=== PATIENT | female | born 1990 | race Caucasian/White ===

== ENCOUNTER → 2018-05-25 14:00 | Outpatient (CLI) | payer OTHER, SELFPAY | DX: Z23 Encounter for immunization (principal) | CPT/HCPCS: 90471; 90686 ==

== ENCOUNTER → 2018-10-24 09:05 | Outpatient (CLI) | payer OTHER, SELFPAY ==
--- NOTE | 2018-10-24 | DI.US.S_ITS ---
PROCEDURE: US OB <= 14 WEEKS FETUS INDICATIONS: THREATENED ; BLEEDING OUTSIDE/PRIOR DATING DATA: Last menstrual period (LMP): 08/20/18. LMP-based estimated date of delivery (KAYLIE): 05/27/19 First dating scan (date and location): Today. Estimated date of delivery (KAYLIE) from first dating scan: 06/15/19. TECHNIQUE: Real-time scanning was performed of the fetus and maternal pelvic organs, with image documentation. Endovaginal scanning was also performed to better visualize the fetus and maternal ovaries. COMPARISON: None. FINDINGS: Embryo: There is a crown-rump length measuring 0.74 cm with a gestational age of 6 weeks 4 days. There is no heartbeat. This is a intrauterine demise. Measurement variability in dating: +/- 4 weeks by LMP, +/- 7 days by mean sac diameter (use before 6 weeks gestation if crown-rump length not able to be measured), +/- 5 days by crown-rump length (up to 8 weeks 6 days gestation), +/- 7 days by crown-rump length (up to 13 weeks 6 days gestation). Maternal organs: Ovaries are within normal limits. Limited images through the kidneys demonstrate no hydronephrosis. IMPRESSION: 1. [place]-rump length measuring 7.4 mm with an estimated gestational age of 6 weeks 4 days. No heart rate. Findings consistent with intrauterine demise. Comment: Findings were discussed with Maribell CANALES at time of study dictation. Dictated by: Uli Leonard M.D. on 10/24/2018 at 10:37 Approved by: Uli Leonard M.D. on 10/24/2018 at 10:58
[2018-10-24 11:06] LABS: T4 Total Thyroxine 6.99 ug/dL (5.5-11.0)
[2018-10-24 11:19] LABS: Thyroid Stimulating Hormone 2.51 uIU/mL (0.47-4.68)
== END ==
PROVIDERS: Visit Provider Nurse Practitioner Obstetrics & Gynecology
DX: O02.1 Missed abortion (principal)
CPT/HCPCS: 36415; 76801; 76817; 84436; 84443; 86900; 86901

== ENCOUNTER → 2019-06-04 09:05 | Outpatient (CLI) | payer OTHER, SELFPAY ==
--- NOTE | 2019-06-04 | DI.US.S_ITS ---
PROCEDURE: US OB >= 14 WEEKS FETUS INDICATIONS: ANATOMY SCAN OUTSIDE/PRIOR DATING DATA: Last menstrual period (LMP): 01/13/19. LMP-based estimated date of delivery (KAYLIE): 10/20/19. First dating scan (date and location): 06/04/19. Estimated date of delivery (KAYLIE) from first dating scan: 10/22/19. TECHNIQUE: Real-time scanning was performed of the fetus, with image documentation and biometric measurements. Endovaginal scanning: Not performed COMPARISON: None. FINDINGS: General: A single living intrauterine gestation is present. Presentation: Vertex. Placenta: Placental position is fundal, without previa. Lower placental edge 2 cm or less from internal cervical os qualifies as low lying placenta. Amniotic fluid index: 13.7 cm, normal range is 5-24 cm. largest pocket measures 4.2 cm heart rate: 150 beats per minute. Maternal cervical canal: 3.7 cm long. Normal lower limit is 2.5 cm. biometrics: Biparietal diameter: 4.5 cm, 19 weeks 4 days Head circumference: 17.3 cm, 19 weeks 6 days Abdominal circumference: 15.0 cm, 20 weeks 2 days Femur length: 3.2 cm, 19 weeks 6 days Estimated gestational age from initial scan: not applicable. Composite gestational age from present scan: 20 weeks zero days Estimated weight and percentile: 327 g, 31st percentile Measurement variability for biometric dating: +/- 7 days from 14 weeks to 15 weeks 6 days gestation, +/- 10 days from 16 weeks to 21 weeks 6 days gestation, +/- 2 weeks from 22 weeks to 27 weeks 6 days gestation, +/- 3 weeks for 28 weeks gestation or later. weight reference: 4500 g or EFW >90/95% is considered macrosomia or large for gestational age. EFW <10% is small for gestational age. EFW 5% or less is considered intra-uterine growth restriction. Anatomic survey: Neuro: Ventricles are non-dilated at less than 10 mm. Cisterna magna is normal at 3-11 mm. Cerebellum is normal in size and morphology. Nuchal skin fold: Normal at less than 6 mm between 14-21 weeks gestational age. Face: Nose and lips, facial profile are normal. Spine: Not well-seen due to gestational I. Heart: 4-chambered heart is present, with normal ventricular outflow tracts. Diaphragm: Diaphragm is intact. Stomach: Left-sided stomach is present. Kidneys: No hydronephrosis. Normal is less than 5 mm in 2nd trimester, less than 7 mm in 3rd trimester. Cord: 3-vessel cord has orthotopic insertion. Bladder: Normal in size. Extremities: All 4 extremities identified. Large cystic-appearing structure measuring 3.7 x 3.3 x 3.7 cm lies adjacent to the placenta and placental cord insertion. No definite continuity with the fetus is seen. No internal vascularity with Doppler interrogation. IMPRESSION: Single living intrauterine fetus demonstrating expected interval growth. spine not well visualized due to gestational lie Recommend followup. Incidentally noted placental or umbilical cord cyst, nonspecific finding. Dictated by: Charlie Fierro M.D. on 06/04/2019 at 11:36 Approved by: Charlie Fierro M.D. on 06/04/2019 at 11:40
== END ==
PROVIDERS: PCP Nurse Practitioner Obstetrics & Gynecology; Visit Provider Nurse Practitioner Obstetrics & Gynecology
DX: Z36.89 Encounter for other specified antenatal screening (principal); Z3A.20 20 weeks gestation of pregnancy
CPT/HCPCS: 76811

== ENCOUNTER → 2019-07-09 09:01 | Outpatient (CLI) | payer OTHER, SELFPAY ==
--- NOTE | 2019-07-09 | DI.US.S_ITS ---
PROCEDURE: US OB FOLLOW UP INDICATIONS: FOLLOW-UP SPINE, INTRAUTERINE CYST OUTSIDE/PRIOR DATING DATA: Last menstrual period (LMP): 01/13/19. LMP-based estimated date of delivery (KAYLIE): 10/20/19. First dating scan (date and location): 06/04/19. Estimated date of delivery (KAYLIE) from first dating scan: 10/22/19.. TECHNIQUE: Real-time scanning was performed of the fetus, with image documentation and biometric measurements. COMPARISON: [facility], OB <= 14 WEEKS FETUS, 10/24/2018, 9:59. [facility] OB >= 14 WEEKS FETUS, 06/04/2019, 9:29. FINDINGS: General: A single living intrauterine gestation is present. Presentation: Transverse. Placenta: Placental position is anterior, without previa. Amniotic fluid index: 16.8 cm, normal range is 5-24 cm. heart rate: 150 beats per minute. Maternal cervical canal: 4.2 cm long. Normal lower limit is 2.5 cm. Estimated gestational age from initial scan: 25 weeks 0 days Other: Probable umbilical cord cyst redemonstrated with internal avascular echogenic focus. IMPRESSION: 1. Single living IUP redemonstrated and today's exam demonstrating normal appearance of the spine. 2. Probable umbilical cord cyst which measures 6.0 x 4.0 x 5.4 cm and there is a internal avascular focus present measuring 2.9 x 3.8 x 3.6 cm which may be related to internal hemorrhagic products. Continued sonographic surveillance is recommended. Dictated by: Rod Bhakta [facility] Interpreted: Ellie Parada MD on 07/09/2019 at 10:56 Approved by: Ellie Parada MD, PhD on 07/09/2019 at 13:56
== END ==
PROVIDERS: PCP Nurse Practitioner Obstetrics & Gynecology; Visit Provider Nurse Practitioner Obstetrics & Gynecology
DX: Z36.2 Encounter for other antenatal screening follow-up (principal); Z3A.25 25 weeks gestation of pregnancy
CPT/HCPCS: 76816

== ENCOUNTER → 2019-07-16 09:05 | Outpatient (CLI) | payer OTHER, SELFPAY ==
[2019-07-16 11:01] LABS: Add Manual Diff / Slide Review NO; Basophils Absolute Auto 100 /uL (0-100); Basophils Percent Auto 0.5 % (0-2); Eosinophils Absolute Auto 100 /uL (0-450); Eosinophils Percent Auto 1.2 % (2-4); Hematocrit 31.8 % (36-46); Hemoglobin 10.8 g/dL (12.0-16.0); Lymphocytes Absolute Auto 2300 /uL (1100-4500); Lymphocytes Percent Auto 22.5 % (25-40); Mean Corpuscular HGB Conc 33.9 % (30-36); Mean Corpuscular Hemoglobin 30.3 PG (26-34); Mean Corpuscular Volume 89.4 fL (80-100); Monocytes Absolute Auto 700 /uL (0-900); Monocytes Percent Auto 6.5 % (3-14); Neutrophils Absolute Auto 6900 /uL (1500-7000); Neutrophils Percent Auto 69.3 % (50-75); Platelet Count 182 X10^3/uL (150-400); Red Blood Cell Count 3.55 X10^6/uL (4.0-5.2); Red Cell Distribution Width 12.9 % (11.6-14.8)
[2019-07-16 11:33] LABS: Glucose Fasting 70 mg/dL (70-100)
[2019-07-16 11:59] LABS: Glucose Tol Interpretation INTERPRETATION
[2019-07-16 12:11] LABS: Ferritin 5.6 ng/mL (6.27-137)
[2019-07-16 12:33] LABS: Glucose 1 Hour 157 mg/dL (70-170)
[2019-07-16 13:20] LABS: Glucose 2 Hour 141 mg/dL (70-140)
== END ==
PROVIDERS: PCP Nurse Practitioner Obstetrics & Gynecology; Visit Provider Nurse Practitioner Obstetrics & Gynecology
DX: O24.419 Gestational diabetes mellitus in pregnancy, unspecified control (principal); Z13.1 Encounter for screening for diabetes mellitus
CPT/HCPCS: 36415; 82728; 82951; 82952; 85025

== ENCOUNTER → 2019-08-05 08:36 | Outpatient (CLI) | payer OTHER, SELFPAY ==
--- NOTE | 2019-08-05 | DI.US.S_ITS ---
PROCEDURE: US OB FOLLOW UP INDICATIONS: GROWTH, FOLLOW UP UMBILICAL CORD CYST OUTSIDE/PRIOR DATING DATA: Last menstrual period (LMP): 01/13/2019. LMP-based estimated date of delivery (KAYLIE): 10/20/2019. First dating scan (date and location): 06/04/2019. Estimated date of delivery (KAYLIE) from first dating scan: 10/22/2019. TECHNIQUE: Real-time scanning was performed of the fetus, with image documentation. COMPARISON: [facility], , OB FOLLOW UP, 07/09/2019, 9:26. FINDINGS: A single living intrauterine gestation is present. Presentation: Vertex. Placenta: Placental position is anterior, without previa. Amniotic fluid index: 16.3 cm, normal range is 5-24 cm. heart rate: 131 beats per minute. Maternal cervical canal: 5.0 cm long. Normal lower limit is 2.5 cm. Estimated gestational age from initial scan: 28 weeks 6 days. Estimated gestational age from current ultrasound: 29 weeks 1 day. BPD: 7.2 cm. 28 weeks 6 days. HC: 27.3 cm. 29 weeks 5 days. AC: 25.4 cm. 29 weeks 4 days. FL: 5.3 cm. 20 weeks 2 days. Estimated weight 1344 g. 48 percentile. Umbilical artery S./D. Ratio: 2.4, 2.8, 3.3 Umbilical cord cyst measures 6.9 x 6.7 x 3.8 cm. (previously 6.0 x 5.4 x 4.0). Central portion and is now more hypoechoic and measures 4 x 3.5 x 3 cm, (previously 3.8 x 2.9 x 3.6 cm). No internal vascularity or mural nodule. IMPRESSION: 1. [place] living intrauterine at 29 weeks 1/7 days based on today's ultrasound. This is concordant with the prior ultrasound. There is expected interval growth. 2. Normal placenta and amniotic fluid. 3. Umbilical cord cyst measures 6.9 cm, overall increase in size compared to 07/09/2019. 4. Umbilical artery Doppler is within normal limits. Dictated by: Gage Lo M.D. on 08/05/2019 at 16:41 Approved by: Gage Lo M.D. on 08/05/2019 at 16:53
== END ==
PROVIDERS: PCP Nurse Practitioner Obstetrics & Gynecology; Visit Provider Nurse Practitioner Obstetrics & Gynecology
DX: Z36.2 Encounter for other antenatal screening follow-up (principal); O99.89 Other specified diseases and conditions complicating pregnancy, childbirth and the puerperium; Z3A.29 29 weeks gestation of pregnancy
CPT/HCPCS: 76816

== ENCOUNTER → 2019-08-28 15:30 | Oncology outpatient (ONC) | payer OTHER, SELFPAY ==
[2019-07-24 13:48] VITALS: BP 132/78; PULSE 78; RESP 16; TEMP 36.4; O2SAT 100
[2019-07-24] MEDS: IRON SUCROSE 250 MG in SODIUM CHLORIDE 0.9% 100 ML 225 ML IV (14:04)
[2019-07-31 16:02] VITALS: BP 115/69; PULSE 79; RESP 16; TEMP 36.6; O2SAT 99
[2019-07-31] MEDS: IRON SUCROSE 250 MG in SODIUM CHLORIDE 0.9% 100 ML 225 ML IV (16:34)
[2019-08-21 15:41] VITALS: BP 121/73; PULSE 75; RESP 16; TEMP 36.6; O2SAT 97
[2019-08-21] MEDS: IRON SUCROSE 250 MG in SODIUM CHLORIDE 0.9% 100 ML 225 ML IV (15:54)
[2019-08-28] MEDS: IRON SUCROSE 250 MG in SODIUM CHLORIDE 0.9% 100 ML 225 ML IV (15:36)
[2019-08-28 15:45] VITALS: BP 106/61; PULSE 84; RESP 18; TEMP 36.7; O2SAT 100
== END ==
PROVIDERS: PCP Nurse Practitioner Obstetrics & Gynecology; Visit Provider Nurse Practitioner Obstetrics & Gynecology
DX: O99.013 Anemia complicating pregnancy, third trimester (principal); D50.9 Iron deficiency anemia, unspecified
CPT/HCPCS: 36415; 96365; J1756

== ENCOUNTER → 2019-09-10 09:18 | Outpatient (CLI) | payer OTHER, SELFPAY ==
--- NOTE | 2019-09-10 | DI.US.S_ITS ---
PROCEDURE: US OB LIMITED INDICATIONS: BPP AND GROWTH OUTSIDE/PRIOR DATING DATA: Last menstrual period (LMP): 01/13/19. LMP-based estimated date of delivery (KAYLIE): 10/20/19. First dating scan (date and location): 06/04/19. Estimated date of delivery (KAYLIE) from first dating scan: 10/22/19. TECHNIQUE: Real-time scanning was performed of the fetus, with image documentation and biometric measurements. Endovaginal scanning: Not performed COMPARISON: [facility], OB FOLLOW UP, 08/05/2019, 8:59. [facility] OB FOLLOW UP, 07/09/2019, 9:26. [facility] OB >= 14 WEEKS FETUS, 06/04/2019, 9:29. FINDINGS: General: A single living intrauterine gestation is present. Presentation: Vertex. Placenta: Placental position is anterior, without previa. Amniotic fluid index: 14.7 cm, normal range is 5-24 cm. heart rate: 145 beats per minute. Maternal cervical canal: 4.5 cm long. Normal lower limit is 2.5 cm. Estimated gestational age from initial scan: 34 weeks zero days Other: Biophysical profile 03/21 Tone 2 point Movement 2 point Respiration 2 points Largest pocket (4.7 cm) 2 point Umbilical artery S/D ratio measures 2.8, 3.1, 2.9 within normal limits. Cyst involving the placenta or cord measuring 8.3 x 8.2 x 5.1 cm (previously 6.7 x 3.8 x 6.9 cm). IMPRESSION: Single living intrauterine fetus in vertex presentation Normal DEVORA Normal biophysical profile Normal CORD Doppler examination. Presumed umbilical cord cyst as above, enlarged since prior study Dictated by: Charlie Fierro M.D. on 09/10/2019 at 17:29 Approved by: Charlie Fierro M.D. on 09/10/2019 at 17:38
== END ==
PROVIDERS: PCP Nurse Practitioner Obstetrics & Gynecology; Visit Provider Nurse Practitioner Obstetrics & Gynecology
DX: Z36.89 Encounter for other specified antenatal screening (principal); Z3A.34 34 weeks gestation of pregnancy
CPT/HCPCS: 76815

== ENCOUNTER 2019-09-17 16:01 | Outpatient (CLI) | payer OTHER, SELFPAY ==
--- NOTE | 2019-09-17 16:22 | P.TNLD_ITS ---
Visit Information Visit Information Date of evaluation: 09/17/19 Primary OB Provider: Maribell Lopez On-call OB Provider: Lisa Deal Reason for Evaluation: Yes pre-term labor Comments/Additional reasons for admission: 28 YO @ 35wks2 days by LMP and early US presents for evaluation of contractions. Contractions started today around 2pm after a very busy day running errands and cleaning the house. Ctx rated at a 3/10, stronger than her normal [place] Re[place]. Lots of FM. No VB or LOF. significant for iron deficiency anemia treated w/ IV Fe and placental cyst w/ MFM co-management (MFM has approved vaginal at w/ IOL in 38-39th week). Pt would like to make it to her dinner reservation tonight if it is safe to do so. [facility] Medical History (Updated 09/17/19 @ 16:51 by Maribell Lopez CNM) Frequent UTI (Acute) History of pyelonephritis (Acute) Family History (Updated 09/17/19 @ 16:36 by Maribell Lopez CNM) Mother Cancer Father Hypertension Review of Systems Review of Systems ROS: Yes All systems reviewed with the patient and are negative except as otherwise documented Exam Vital Signs (past 8 hours): BP 121/76, HR 76, T98.6F Temporal Const General: healthy appearing Nutritional Appearance: average body habitus and well nourished Orientation: alert, awake and oriented x3 Resp Effort & Inspection: normal respiratory effort and able to speak in complete sentences Manual OB Exam: dilated (1.5), effaced 75% and station high Presentation: vertex Other: Rapid GBS collected prior to cervical exam Evaluation Evaluation Baseline heart rate: 135 Variability: Moderate (11-25) monitor accelerations: Present monitor decelerations: Absent Contraction Frequency (minutes): 3 Uterine Contraction Intensity: Mild Category of Tracing: I Cervical dilation (cm): 1 Cervical effacement (%): 75 station: -3 Diagnosis, Plan/Disposition Final Diagnosis (1) contractions: Current Visit: Yes Status: Acute Problem details: Discharge to home w/ PTL instructions. If contractions ease, pt to follow-up in clinic in AM. If contractions persist, precommend she come back for repeat evaluation in 4 hours. If ctx strengthen, encouraged her to return [place]. Patient verbalized understanding and ambulated off of unit with her .
[2019-09-18 18:40] LABS: Strep Grp B PCR NEG for Grp B Strep
== END 2019-09-17 16:30 | disposition home or self-care (01) ==
LOC: OB 09-18 12:57
PROVIDERS: PCP Nurse Practitioner Obstetrics & Gynecology; Referring Provider Nurse Practitioner Obstetrics & Gynecology; Visit Provider Nurse Practitioner Obstetrics & Gynecology
DX: O47.03 False labor before 37 completed weeks of gestation, third trimester (principal); O99.013 Anemia complicating pregnancy, third trimester; Z3A.35 35 weeks gestation of pregnancy
CPT/HCPCS: 59025; 87653; G0378; G0379

== ENCOUNTER → 2019-09-18 15:09 | Outpatient (ROUT) | payer OTHER, SELFPAY | PROVIDERS: PCP Nurse Practitioner Obstetrics & Gynecology; Visit Provider Nurse Practitioner Obstetrics & Gynecology | DX: O09.93 Supervision of high risk pregnancy, unspecified, third trimester (principal); Z3A.35 35 weeks gestation of pregnancy; Z11.2 Encounter for screening for other bacterial diseases | CPT/HCPCS: 87081 ==

== ENCOUNTER → 2019-09-24 09:03 | Outpatient (CLI) | payer OTHER, SELFPAY ==
--- NOTE | 2019-09-24 | DI.US.S_ITS ---
PROCEDURE: US OB LIMITED INDICATIONS: EFW; BPP OUTSIDE/PRIOR DATING DATA: Last menstrual period (LMP): 01/13/2019. LMP-based estimated date of delivery (KAYLIE): 10/20/2019. First dating scan (date and location): 06/04/2019. Estimated date of delivery (KAYLIE) from first dating scan: 10/22/2019. TECHNIQUE: Real-time scanning was performed of the fetus, with image documentation and biometric measurements. Biophysical profile was also obtained. Endovaginal scanning: Not performed COMPARISON: [facility], OB LIMITED, 09/10/2019, 9:36. FINDINGS: General: A single living intrauterine gestation is present. Presentation: Vertex. Placenta: Placental position is anterior, without previa. Amniotic fluid index: 11.3 cm, normal range is 5-24 cm. the largest vertical fluid pocket measured 3.8 cm. heart rate: 152 beats per minute. biometrics: Biparietal diameter: 8.8 cm, correlating with 35 weeks and 3 days. Head circumference: 31.8 cm, correlating with 35 weeks and 6 days. Abdominal circumference: 32.9 cm, correlating with 36 weeks and 6 days. Femur length: 6.9 cm, correlating with 35 weeks and 2 days. Estimated gestational age from initial scan: not applicable. Composite gestational age from present scan: 35 weeks and 6 days Estimated weight and percentile: 2869 g, correlating with the 56 percentile for gestational age. Measurement variability for biometric dating: +/- 7 days from 14 weeks to 15 weeks 6 days gestation, +/- 10 days from 16 weeks to 21 weeks 6 days gestation, +/- 2 weeks from 22 weeks to 27 weeks 6 days gestation, +/- 3 weeks for 28 weeks gestation or later. weight reference: 4500 g or EFW >90/95% is considered macrosomia or large for gestational age. EFW <10% is small for gestational age. EFW 5% or less is considered intra-uterine growth restriction. Biophysical profile: Tone: 2 points. Movement: 2 points. Respiration: 2 points. Largest pocket of fluid: 2 points. Umbilical artery Doppler: S/D ratio measured 2.6. Normal cord Doppler waveform. IMPRESSION: 1. Single living intrauterine gestation with an estimated sonographic gestational age of approximately 35 weeks and 6 days. Expected interval growth has occurred. 2. Biophysical profile score of 8 out of 8 with normal cord Doppler waveforms and S/D ratio. Dictated by: Onesimo Ball M.D. on 09/24/2019 at 9:56 Approved by: Onesimo Ball M.D. on 09/24/2019 at 11:05
== END ==
PROVIDERS: PCP Nurse Practitioner Obstetrics & Gynecology; Referring Provider Nurse Practitioner Obstetrics & Gynecology; Visit Provider Nurse Practitioner Obstetrics & Gynecology
DX: Z34.93 Encounter for supervision of normal pregnancy, unspecified, third trimester (principal); Z3A.35 35 weeks gestation of pregnancy
CPT/HCPCS: 76815

== ENCOUNTER → 2019-10-08 09:02 | Outpatient (CLI) | payer OTHER, SELFPAY ==
--- NOTE | 2019-10-08 | DI.US.S_ITS ---
PROCEDURE: US OB LIMITED INDICATIONS: F/U ABN U/S FINDING, BPP OUTSIDE/PRIOR DATING DATA: Last menstrual period (LMP): 01/13/19. LMP-based estimated date of delivery (KAYLIE): 10/20/19. First dating scan (date and location): 06/04/19. Estimated date of delivery (KAYLIE) from first dating scan: 10/22/19. TECHNIQUE: Real-time scanning was performed of the fetus, with image documentation. Endovaginal scanning: Not needed COMPARISON: [facility], OB LIMITED, 09/24/2019, 9:23. [facility], OB LIMITED, 09/10/2019, 9:36. FINDINGS: A single living intrauterine gestation is present. Presentation: Vertex. Placenta: Placental position is anterior, without previa. Amniotic fluid index: 12.5 cm, normal range is 5-24 cm. heart rate: 139 beats per minute. Estimated gestational age from initial scan: 38 weeks 0 days. Biophysical profile yields a of a possible points. Umbilical artery systolic/diastolic ratio is normal at the proximal, mid and distal umbilical cord. Note is again made of a placental or adjacent umbilical cord cyst, previously documented, measuring up to 7.1 x 7.6 x 4.1 cm overall with an internal cystic component containing debris measuring up to 3.4 x 2.1 x 3.1 cm. IMPRESSION: Normal biophysical profile. Previously documented umbilical artery or adjacent placental cyst with internal cyst with debris is stable over time. The delivery date is projected to be centered on 10/22/19. Dictated by: Robert Adam M.D. on 10/08/2019 at 13:09 Approved by: Robert Adam M.D. on 10/08/2019 at 13:13
== END ==
PROVIDERS: PCP Nurse Practitioner Obstetrics & Gynecology; Referring Provider Nurse Practitioner Obstetrics & Gynecology; Visit Provider Nurse Practitioner Obstetrics & Gynecology
DX: O28.3 Abnormal ultrasonic finding on antenatal screening of mother (principal); Z3A.38 38 weeks gestation of pregnancy
CPT/HCPCS: 76815

== ENCOUNTER 2019-10-10 07:25 | Inpatient (IN) | payer OTHER, SELFPAY ==
--- NOTE | 2019-10-10 07:43 | PM.OBHP.1 ---
OB HPI Date/Time Date of admission: 10/10/19 Date Patient Seen: 10/10/19 Time Patient Seen: 07:40 History of Present Condition Chief complaint: induction : 3 Para: 10 Estimated Date of Delivery: 10/20/19 Estimated Gestational Age (weeks): 38.4 Narrative: Carmela Penny is a 28 year old female @ 38wks 4days by LMP and 9wk US presents for medical IOL for placental anomaly. [facility] in 38-39th week. Feeling good FM and mild, irregular contractions. No vaginal bleeding or leaking fluid. Received IV iron dextrose for anemia in 3rd trimester. Indications Indication for induction OB: medical complication History of Present care: good care Dating criteria: LMP confirmed by 1st trimester US Obstetrical complications: other (placental cyst 7.1x7.6x4.1cm with internal mass 3.4x2.1x3.1cm) Evaluation Evaluation Baseline heart rate: 135 Variability: Moderate (11-25) monitor accelerations: Present monitor decelerations: Absent Contraction Frequency (minutes): 10 Uterine Contraction Intensity: Mild Category of Tracing: I Cervical dilation (cm): 3 Cervical effacement (%): 50 station: -2 PFSH Medical History Frequent UTI (Acute) History of pyelonephritis (Acute) Family History Mother Cancer Father Hypertension Meds Home Medications and Allergies Allergies Allergy/AdvReac Type Severity Reaction Status Date / Time No Known Drug Allergies Allergy Verified 07/24/19 13:48 Review of Systems Review of Systems ROS: Yes All systems reviewed with the patient and are negative except as otherwise documented Exam Vital Signs (past 8 hours): BP 110/64, HR82, T36.2C Temporal Resp Effort & Inspection: normal respiratory effort Auscultation: clear to auscultation bilaterally Cardio Rate: regular rate Rhythm: regular rhythm Heart Sounds: S1 normal and S2 normal Manual OB Exam: dilated (2.5), effaced 50%, station -2 and other (medium consistency, posterior) Presentation: brow Estimated Weight (lbs): 7 Objective Labs Labs: ABO/Rh: O positive, Antibody screen-negative, HIV-negative, HepBsAg-negative, GC/CT-negative/negative, RPR-NR, Rubella-Immune, NIPS-negative/female, MsAFP-negative; 07/16/19: Hgb-10.8, Hct-31.8, Plt-182, 2hr gtt-70/157/141 (passed); 09/18/19: GBS-negative Admit CBC and type & screen pending Assessment and Plan Assessment and Plan Assessment and Plan narrative: A: multipara IOL for placental anomaly Rh Pos Anemia Cat I FHR P: Admit w/ routine orders. Recommend continuous EFM d/t placental anomaly and potential intolerance of labor. Recommend Miles circuit for malpresentation in early labor. Informed consent for IOL obtained yesterday. Eason balloon placed manually and inflated w/ 50mL NS. Low dose pitocin (no greater than 6mu/min until Eason balloon out). Placenta to pathology after . notified of patient admit status and plan of care. Time Spent with Patient Total time spent with greater than 50% in coordination of care (as documented) at patient's floor/unit and/or counseling patient:: 25 - 35 minutes
[2019-10-10] MEDS: LACTATED RINGERS 1,000 ML 100 ML IV ×2 (09:00→15:19)
[2019-10-10 09:18] LABS: Add Manual Diff / Slide Review NO; Basophils Absolute Auto 100 /uL (0-100); Basophils Percent Auto 0.4 % (0-2); Eosinophils Absolute Auto 100 /uL (0-450); Hematocrit 35.9 % (36-46); Hemoglobin 12.1 g/dL (12.0-16.0); Lymphocytes Absolute Auto 1700 /uL (1100-4500); Lymphocytes Percent Auto 13.9 % (25-40); Mean Corpuscular HGB Conc 33.7 % (30-36); Mean Corpuscular Hemoglobin 30.8 PG (26-34); Mean Corpuscular Volume 91.5 fL (80-100); Monocytes Absolute Auto 500 /uL (0-900); Monocytes Percent Auto 4.2 % (3-14); Neutrophils Absolute Auto 10000 /uL (1500-7000); Neutrophils Percent Auto 80.5 % (50-75); Platelet Count 210 X10^3/uL (150-400); Red Blood Cell Count 3.92 X10^6/uL (4.0-5.2); Red Cell Distribution Width 15.1 % (11.6-14.8); White Blood Cell Count 12.4 X10^3/uL (4.5-11.0)
[2019-10-10] MEDS: OXYTOCIN PREMIX 30 UNIT/500 ML PLAST..BAG IV (09:44)
[2019-10-10 11:08] VITALS: BP 110/64
--- NOTE | 2019-10-10 11:12 | PM.OBPNLAB ---
Date/Time Date Patient Seen: 10/10/19 Time Patient Seen: 11:10 Pain Control Pain control: tolerating well Pelvic Exam Dilation (cm): 3 Effacement (%): 50 station: -2 Comments: CE deferred as Eason balloon is not yet out Contractions Date/Time contractions began: 814 Contractions on admission: regular Monitor mode: External Pitocin rate (mU/min): 2 Contraction frequency (min): 3 Contraction pattern: Regular Contraction intensity: Mild Status status: Category l Heart Rate Baseline: 140 Monitor Accelerations: Present Monitor Decelerations: Absent Monitor Variability: Moderate Assessment and Plan Assessment: induction ongoing Plan: continuous present management Comments: Continue low dose pitocin augmentation unitl Eason Balloon is out. Labor support PRN. Reassess in 4 hours or sooner, PRN.
--- NOTE | 2019-10-10 13:22 | PM.OBPNLAB ---
Date/Time Date Patient Seen: 10/10/19 Time Patient Seen: 11:45 Pain Control Pain control: tolerating well Comments: VS: BP 107/63, HR73, T36.3C Temporal Pelvic Exam Dilation (cm): 5 Effacement (%): 70 station: -3 Amniotic membrane status: Intact Comments: mid position, soft, brow presentation Contractions Date/Time contractions began: 0830 Monitor mode: External Pitocin rate (mU/min): 3 Contraction frequency (min): 3 Contraction duration (min): 1 Contraction pattern: Regular Contraction intensity: Mild Status status: Category l Heart Rate Baseline: 140 Monitor Accelerations: Present Monitor Decelerations: Absent Monitor Variability: Moderate Assessment and Plan Assessment: induction ongoing Plan: continuous present management Comments: Recommend increasing pitocin to adequate contraction pattern. Recheck CE after 2 hours of strong contractions. Reassess in 4 hours or sooner, PRN.
--- NOTE | 2019-10-10 15:46 | PM.OBPNLAB ---
Date/Time Date Patient Seen: 10/10/19 Time Patient Seen: 15:30 Pain Control Pain control: tolerating well Comments: VS: BP 106/56, HR75, T36.3C Temporal Pelvic Exam Dilation (cm): 5 Effacement (%): 70 station: -3 Amniotic membrane status: Intact Comments: CE unchanged. AROM w/ exam, copious clear fluid Contractions Date/Time contractions began: 0830 Contractions on admission: irregular Monitor mode: External Pitocin rate (mU/min): 12 Contraction frequency (min): 3 Contraction duration (min): 1 Contraction pattern: Regular Contraction intensity: Mild Status status: Category ll Heart Rate Baseline: 135 Monitor Accelerations: Present Monitor Decelerations: Variable (rare) Monitor Variability: Moderate Assessment and Plan Assessment: induction ongoing Plan: continuous present management Comments: Offered repeat CE and AROM if no significant cervical change. Pt eager for active labor and consented to AROM prior to exam. AROM was performed and patient reported slight increase in intensity with next contraction. Continue pitocin titration to adequate ctx. Reassess in 4 hours or sooner, PRN.
[2019-10-10] MEDS: ONDANSETRON 4 MG/2 ML INJ IV (17:00)
--- NOTE | 2019-10-10 18:13 | PM.OBPRVD ---
 Events: Labor Induction Labor & Delivery Delivery date: 10/10/19 Intrapartal events: None Cervical ripening method: per Eason bulb protocol Induction method: per pitocin protocol Delivery monitor: external FHT Route of delivery: L&D Laceration Description: None Estimated blood loss (mL): 50 Anesthesia type: None Narrative: Patient labored well without medication for pain. ROM x 3hours with clear fluid. Pitocin max dose 13mu/min. FHR primarily Cat I until deep variables to 60-70 during short second stage. Pt began to push spontaneously and rapidly progressed to NSVB of a vigorous baby girl in direct OA position. Single loose NC was reduced on the perineum. Shoulders delivered w/ position change from left lateral to lithotomy. was placed on maternal abdomen for drying and skin to skin, Apgars 9/9. Pitocin was increased to 350mL/hr for AMTSL. After cessation of pulsation, the cord was double clamped by CNM and cut by FOB. Gentle cord traction and single maternal push led to spontaneous Schultze delivery of an apparently intact placenta, membranes and 3VC. Large placental cyst was noted, adjacent to cord. Fundus immediately firm and bleeding minimal. Vagina and perineum inspected and intact. QBL 50mL. Both mother and baby stable and skin to skin as I left the room. [place] Baby 1: Infant gender: Female Presentation: vertex position: Right Occiput Anterior Placenta delivery description: Spontaneous cord vessel description: 3 Vessels score (1 min): 9 score (5 min): 9 Plan for aftercare: Routine PP orders. Anticipate discharge in 18-24 hours.
[2019-10-10] MEDS: KETOROLAC 30 MG/ML VIAL IV (18:40)
[2019-10-11] MEDS: IBUPROFEN 600 MG TABLET PO (05:41)
[2019-10-11] MEDS: LANOLIN OINT 7 GM 1 APPLIC TOP (08:52)
--- NOTE | 2019-10-11 09:11 | PM.OBDS.1 ---
Discharge Providers Provider Date of admission: 10/10/19 07:25 Discharge Date: 10/11/19 Primary care physician: Maribell Lopez CNM Consults: 10/11/19 18:10 Consult to Professional Housing Consultant Routine Comment: Discharge provider: Maribell Lopez CNM Summary Hospital Course Date Patient Seen: 10/11/19 Time Patient Seen: 09:00 Procedures: 15 hour s/p NSVB. Feeling great with no concerns. well, though baby is a little sleepy. Voiding and ambulating independently. Peripartum Data Delivery Method: Natural Vaginal Laceration description: None complications: none 1: Gender: Female Disposition of : home Discharge Diagnosis (1) Encounter for full-term uncomplicated delivery: Status: Acute Status at Discharge Cognitive/behavioral status at discharge: oriented Functional status at discharge: independent ambulation Overall status at discharge: patient is progressing back to baseline Time Spent with Patient Time attestation: Total time spent providing and/or coordinating discharge services: Time spent: Less than 30 minutes Objective Labs Result Diagrams: 10/10/19 09:00 Labs: Laboratory Results - last 24 hr 10/10/19 10/10/19 09:00 09:00 WBC 12.4 H RBC 3.92 L Hgb 12.1 Hct 35.9 L MCV 91.5 MCH 30.8 MCHC 33.7 RDW 15.1 H Plt Count 210 Neut % (Auto) 80.5 H Lymph % (Auto) 13.9 L [place] % (Auto) 4.2 Eos % (Auto) 1.0 L Baso % (Auto) 0.4 Neut # (Auto) 28359 H Lymph # (Auto) 1700 [place] # (Auto) 500 Eos # (Auto) 100 Baso # (Auto) 100 Blood Type O Positive Antibody Screen Negative Exam Vital Signs (past 8 hours): BP 107/55, HR60, RR20, T98.1F Temporal Other: Fundus firm @ U. Lochia light, no clots. Discharge Plan Discharge Plan Patient Disposition: Home Discharge orders & Medications Prescriptions: New acetaminophen 325 mg Tablet 650 mg PO Q6HR PRN (Reason: Pain, Mild (1-3)) 14 Days Qty: 60 RF: 1 ibuprofen 600 mg Tablet 600 mg PO Q6HR PRN (Reason: Pain, Mild (1-3)) 14 Days Qty: 60 RF: 1 Follow up/Referrals: Maribell Lopez CNM [Primary Care Provider] - (Follow-up in 2 weeks and 6 weeks . Patient to schedule appointments online at her convenience.) Diet/Activity/Treatments Diet: Diet as Tolerated and Regular Skin/Wound/Dressing Care Report to your healthcare provider any signs of infection, such as:: chills, fever and increased pain Visit Report/Discharge Packet Instructions: DI for Depression Discharge Data Primary Care Provider: Maribell Lopez Attending Provider: Maribell Lopez Admit Date/Time: 10/10/19 07:25
[2019-10-11 11:45] VITALS: BP 112/66; PULSE 76; RESP 17; TEMP 36.8
== END 2019-10-11 12:10 | disposition home or self-care (01) | DRG 807 ==
PROVIDERS: Admitting Provider Nurse Practitioner Obstetrics & Gynecology; PCP Nurse Practitioner Obstetrics & Gynecology; Referring Provider Nurse Practitioner Obstetrics & Gynecology; Visit Provider Nurse Practitioner Obstetrics & Gynecology
DX: O43.893 Other placental disorders, third trimester (principal); Z37.0 Single live birth; Z3A.38 38 weeks gestation of pregnancy; O69.81X0 Labor and delivery complicated by cord around neck, without compression, not applicable or unspecified
CPT/HCPCS: 59050; 85025; 86850; 86900; 86901; G0379; J1885; J2405; J2590

== ENCOUNTER → 2020-11-19 15:37 | Outpatient (CLI) | payer OTHER, SELFPAY ==
--- NOTE | 2020-11-19 | DI.CT.S_ITS ---
PROCEDURE: CT SINUS SCREEN WO CON INDICATIONS: Allergic Rhinitis, unspecified TECHNIQUE: Noncontrast 3.0 mm axial images acquired from the frontal sinuses to the mid-sella, with coronal and sagittal reformats. For radiation dose reduction, the following was used: automated exposure control, adjustment of mA and/or kV according to patient size. COMPARISON: None. FINDINGS: Image quality: Excellent. Maxillary Sinuses: Mucosal thickening in the inferior right maxillary sinus with an associated mucous retention cyst. Mucosal thickening measures up to 3 millimeters. Mucous retention cyst measures up to 1.8 centimeters, occupying approximately 25 percent of the sinus volume. The maxillary sinus ostium and outflow tract appear patent. Ethmoid Air Cells: No bony remodeling or destruction. Sinuses are clear. Sphenoid Sinuses: No bony remodeling or destruction. Sinuses are clear. Frontal Sinuses: No bony remodeling or destruction. Sinuses are clear. Ostiomeatal Complexes: Ostiomeatal complexes are patent. No Jamel cells. Miscellaneous: Visualized intra-orbital contents are normal. No rianna bullosa or paradoxical turbinate curvature. No significant nasal septal deviation. IMPRESSION: Mild-moderate inflammatory changes in the right maxillary sinus. Otherwise no significant sinonasal pathology. Dictated by: Tommy Delgado M.D. on 11/19/2020 at 16:11 Approved by: Tommy Delgado M.D. on 11/19/2020 at 16:13
== END ==
PROVIDERS: PCP Nurse Practitioner Obstetrics & Gynecology; Referring Provider Otolaryngology; Visit Provider Otolaryngology
DX: J30.9 Allergic rhinitis, unspecified (principal)
CPT/HCPCS: 70486

== ENCOUNTER → 2023-02-05 09:41 | Outpatient (CLI) | payer OTHER, SELFPAY | PROVIDERS: PCP Nurse Practitioner Obstetrics & Gynecology; Visit Provider Nurse Practitioner Family | DX: J02.9 Acute pharyngitis, unspecified (principal) | CPT/HCPCS: 87070 ==

== ENCOUNTER 2024-05-04 20:45 | Emergency (ER) | payer OTHER, SELFPAY ==
[2024-05-04] VITALS (10 sets, daily range): BP systolic 94–132; BP diastolic 61–85; PULSE 56–84; RESP 9–36; TEMP 36.9; O2SAT 97–100; BMI 21.9
--- NOTE | 2024-05-04 20:54 | EKG_ITS ---
[address] [address] Test Date: 2024-05-04 Pat Name: Carmela Penny Department: [facility] Room: Gender: Female Line Production Cook: CIARA DANGELO : 1990 Requested By: Order Number: [id number] Reading MD: Herbie Griffin Measurements Intervals Mason Rate: 78 P: 43 IL: 146 QRS: -6 QRSD: 82 T: 28 QT: 386 QTc: 440 Interpretive Statements Normal sinus rhythm Electronically Signed On 05-05-2024 7:42:48 PDT by Herbie Griffin
[2024-05-04] MEDS: MAG HYDROX/ALUMINUM/SIMETH SUS 20 ML, LIDOCAINE VISCOUS 2% 15 ML PO (21:17)
--- NOTE | 2024-05-04 21:42 | DI.RAD.S_ITS ---
PROCEDURE: XR CHEST 1V INDICATIONS: chest pain TECHNIQUE: One view of the chest was acquired. COMPARISON: None. FINDINGS: Surgical changes and devices: None. Lungs and pleura: Lungs are clear. No pleural effusions or pneumothorax. Mediastinum: Mediastinal contours appear normal. Heart size is normal. Bones and chest wall: No suspicious bony lesions. Overlying soft tissues appear unremarkable. IMPRESSION: No acute cardiopulmonary abnormality is seen. Approved by: Nemesio Ross M.D. on 05/04/2024 at 22:05
[2024-05-04] MEDS: ASPIRIN 81 MG CHEW TAB 324 MG PO (22:09)
[2024-05-04] MEDS: SODIUM CHLORIDE 0.9% 1,000 ML 150 ML IV (22:09)
[2024-05-04 22:11] LABS: Add Manual Diff / Slide Review NO; Basophils Absolute Auto 100 /uL (0-100); Basophils Percent Auto 0.9 % (0-2); Eosinophils Absolute Auto 300 /uL (0-450); Eosinophils Percent Auto 3.5 % (2-4); Hematocrit 40.3 % (36-46); Hemoglobin 13.9 g/dL (12.0-16.0); Lymphocytes Absolute Auto 3100 /uL (1100-4500); Lymphocytes Percent Auto 39.3 % (25-40); Mean Corpuscular HGB Conc 34.4 % (30-36); Mean Corpuscular Hemoglobin 31.8 PG (26-34); Mean Corpuscular Volume 92.3 fL (80-100); Monocytes Absolute Auto 500 /uL (0-900); Monocytes Percent Auto 6.6 % (3-14); Neutrophils Absolute Auto 4000 /uL (1500-7000); Neutrophils Percent Auto 49.7 % (50-75); Platelet Count 238 X10^3/uL (150-400); Red Blood Cell Count 4.37 X10^6/uL (4.0-5.2); Red Cell Distribution Width 13.1 % (11.6-14.8)
--- NOTE | 2024-05-04 22:14 | ED.CHESTPAIN ---
HPI - Chest Pain General Chief Complaint: Chest Pain Stated Complaint: chest pressure, pain between shoulder blades Time Seen by Provider: 05/04/24 21:00 Source: patient Mode of arrival: Ambulatory History of Present Illness HPI narrative: 33-year-old female without known history of CAD complains of substernal chest discomfort, with some radiation between the shoulder blades, some pleuritic component. No injury or trauma. Has occasional ibuprofen use. No cough shortness of breath. No fevers or chills. She denies flank discomfort, frequency of urination, painful urination. She also denies radiation of any pain to either arm, nor to either leg. Related Data Previous Rx's Medication Instructions Recorded acetaminophen 325 mg tablet 650 mg (2 x 325 mg) PO Q6HR PRN 10/11/19 Pain, Mild (1-3) 14 days #60 tabs ibuprofen 600 mg tablet 600 mg PO Q6HR PRN Pain, Mild 10/11/19 (1-3) 14 days #60 tabs Allergies Allergy/AdvReac Type Severity Reaction Status Date / Time No Known Drug Allergies Allergy Verified 05/04/24 20:54 Review of Systems Review of Systems Narrative: see HPI Patient History Medical History (Updated 05/05/24 @ 00:43 by Mookie Schultz MD) Frequent UTI History of pyelonephritis Family History Mother Cancer Father Hypertension Social History Smoking Status: Never smoker Smoking Status: Never smoker Substance Use Type: does not use Exam Narrative Exam Narrative: GENERAL: Well-developed patient, in mild distress. HEAD: Atraumatic. Normocephalic. EYES: Pupils equal round and reactive. Extraocular motions intact. No scleral icterus. No injection or drainage. ENT: Nose without bleeding, purulent drainage. Throat without erythema, tonsillar hypertrophy or exudate. Airway patent. NECK: Trachea midline. Non tender CARDIOVASCULAR: Regular rate and rhythm without murmurs, gallops, or rubs. RESPIRATORY: Clear to auscultation. Breath sounds equal bilaterally. No wheezes, rales, or rhonchi. GASTROINTESTINAL: Abdomen soft, non-tender, nondistended. EXTREMITIES: No edema or joint tenderness. BACK: Nontender without deformity or crepitance. No flank tenderness. NEURO: AOx3. Motor function grossly nonfocal SKIN: No rash or erythema of visible areas Initial Vital Signs Initial Vital Signs: Vital Signs Temperature 98.5 F 05/04/24 20:49 Pulse Rate 84 05/04/24 20:49 Respiratory Rate 16 05/04/24 20:49 Blood Pressure 130/82 05/04/24 20:49 Pulse Oximetry 99 05/04/24 20:49 Oxygen Delivery Method Room Air 05/04/24 20:49 Course Orders Ordered: ED Orders 05/04/24 20:54 EKG-12 Lead Stat 05/04/24 21:42 XR chest 1V Stat EKG-12 Lead Stat 05/04/24 22:00 Complete Blood Count AUTO DIFF Stat Comprehensive Metabolic Panel Stat Lipase Stat Troponin & CK Cardiac Panel Stat 05/04/24 23:59 Troponin I Stat Discontinued Medications Aspirin (Aspirin 81 Mg Chew Tab) 324 mg PO NOW ONE Stop: 05/04/24 21:43 Last Admin: 05/04/24 22:09 Dose: 324 mg Documented By: TITUS Al Hydrox/Mg Hydrox/Simethicone 20 ml/ Lidocaine HCl 15 ml 0 ml PO NOW ONE Stop: 05/04/24 21:01 Last Admin: 05/04/24 21:17 Dose: 35 ml Documented By: TITUS Sodium Chloride (Normal Saline 0.9%) 1,000 mls @ 150 mls/hr IV CONT MALCOLM Last Infusion: 05/05/24 00:50 Dose: Infused Documented By: Admin: 05/04/24 22:09 Dose: 150 mls/hr Documented By: TITUS Pantoprazole Sodium (Pantoprazole 40 Mg Vial) 40 mg IV NOW ONE Stop: 05/04/24 22:38 Last Admin: 05/04/24 22:47 Dose: 40 mg Documented By: TITUS Vital Signs Vital signs: Vital Signs - 8 hr 05/04/24 20:49 05/04/24 20:52 05/04/24 20:53 Temperature 98.5 F Pulse Rate 84 79 76 Respiratory Rate 16 15 Blood Pressure 130/82 Pulse Oximetry 99 100 99 Oxygen Delivery Method Room Air 05/04/24 20:53 05/04/24 21:00 05/04/24 21:00 Temperature Pulse Rate 76 Respiratory Rate 36 H Blood Pressure 130/82 122/82 Pulse Oximetry 99 Oxygen Delivery Method 05/04/24 21:30 05/04/24 21:30 05/04/24 22:00 Temperature Pulse Rate 68 72 Respiratory Rate 9 L 25 H Blood Pressure 114/79 Pulse Oximetry 98 98 Oxygen Delivery Method 05/04/24 22:02 05/04/24 22:02 05/04/24 22:30 Temperature Pulse Rate 75 75 Respiratory Rate 14 24 Blood Pressure 122/75 Pulse Oximetry 98 98 Oxygen Delivery Method 05/04/24 22:30 05/04/24 23:00 05/04/24 23:00 Temperature Pulse Rate 60 Respiratory Rate 13 Blood Pressure 132/85 111/74 Pulse Oximetry 97 Oxygen Delivery Method 05/04/24 23:30 05/04/24 23:30 05/05/24 00:00 Temperature Pulse Rate 56 L 69 Respiratory Rate 15 19 Blood Pressure 94/61 Pulse Oximetry 97 98 Oxygen Delivery Method 05/05/24 00:00 05/05/24 00:30 05/05/24 00:30 Temperature 97.8 F Pulse Rate 56 L Respiratory Rate 14 Blood Pressure 100/59 L 98/60 Pulse Oximetry 95 Oxygen Delivery Method MDM - Chest Pain Lab Data Attestation: I reviewed the patient's lab results. 05/04/24 22:00 05/04/24 22:00 Labs: Lab Results 05/04/24 05/04/24 Range/Units 22:00 23:59 WBC 8.0 (4.5-11.0) X10^3/uL RBC 4.37 (4.0-5.2) X10^6/uL Hgb 13.9 (12.0-16.0) g/dL Hct 40.3 (36-46) % MCV 92.3 (80-100) fL MCH 31.8 (26-34) PG MCHC 34.4 (30-36) % RDW 13.1 (11.6-14.8) % Plt Count 238 (150-400) X10^3/uL Neut % (Auto) 49.7 L (50-75) % Lymph % (Auto) 39.3 (25-40) % [place] % (Auto) 6.6 (3-14) % Eos % (Auto) 3.5 (2-4) % Baso % (Auto) 0.9 (0-2) % Neut # (Auto) 4000 (6447-3510) /uL Lymph # (Auto) 3100 (6703-1647) /uL [place] # (Auto) 500 (0-900) /uL Eos # (Auto) 300 (0-450) /uL Baso # (Auto) 100 (0-100) /uL Sodium 141 (137-145) mmol/L Potassium 4.0 (3.4-5.1) mmol/L Chloride 109 H (98-107) mmol/L Carbon Dioxide 24 (22-32) mmol/L BUN 12 (7-17) mg/dL Creatinine 0.78 (0.52-1.04) mg/dL Estimated GFR > 60 (>60) mL/min BUN/Creatinine Ratio 15.4 (6-22) Glucose 103 H (70-100) mg/dL Calcium 9.8 (8.4-10.2) mg/dL Total Bilirubin 0.4 (0.2-1.3) mg/dL AST 23 (14-36) IU/L ALT 14 (<35) IU/L Alkaline Phosphatase 64 (38-126) U/L Total Creatine Kinase 124 (30-135) U/L Troponin I < 0.012 < 0.012 (0.01-0.034) ng/mL Total Protein 7.7 (6.3-8.2) g/dL Albumin 4.8 (3.5-5.0) g/dL Globulin 2.9 (1.7-4.1) g/dL Albumin/Globulin Ratio 1.7 (1.0-2.8) Lipase 58 (23-300) U/L Imaging Data Chest x-ray: Radiologist's Impression: [address] [address] XRay Report Signed Patient: Carmela Penny MR#: [id number] : 1990 Acct:[id number] Age/Sex: 33 / F Date of Service: 05/04/24 Loc: ED Accession Number: [id number] Procedure: XR chest 1V Ordering Provider: Mookie Schultz MD PROCEDURE: XR CHEST 1V INDICATIONS: chest pain TECHNIQUE: One view of the chest was acquired. COMPARISON: None. FINDINGS: Surgical changes and devices: None. Lungs and pleura: Lungs are clear. No pleural effusions or pneumothorax. Mediastinum: Mediastinal contours appear normal. Heart size is normal. Bones and chest wall: No suspicious bony lesions. Overlying soft tissues appear unremarkable. IMPRESSION: No acute cardiopulmonary abnormality is seen. Approved by: Nemesio Ross M.D. on 05/04/2024 at 22:05 ECG Data Interpretation: Normal sinus rhythm with rate of 78, no obvious ST segment elevation or depression changes. T-wave flattening in lead 3 but upright in contiguous inferior leads. [place] 146, QRS 82, QTC 440 MDM Narrative Medical decision making narrative: 33-year-old female with no known coronary artery disease, lacking coronary artery risk factors, has central chest discomfort radiating strike back between the shoulders. Screening EKG without obvious ischemic changes. GI cocktail gave partial improvement. Labs pending. Chest x-ray negative. IV Protonix. PERC negative, no indication for CTA chest at this time for evaluation of pulmonary embolus. Doubt aortic dissection, patient looks quite comfortable. Symptoms gone after Protonix dose. Initial troponin negative. Await interval troponin. Repeat troponin also negative. Advise trial of omeprazole for now, she would like to use [id number] formulation, no prescription sent for now. Further testing and evaluation as an outpatient for now. Improved, stable. Discharge Plan Departure Patient Disposition: Home Clinical Impression: Chest pain Instructions: DI for Atypical Chest Pain Activity Restrictions/Additional Instructions: Chest discomfort with radiation between shoulder blades. Screening EKG without obvious ischemic changes. No history of known coronary artery disease, no recent antacid use. Initial GI cocktail had some improvement in symptoms. Workup therefore continued, including chest x-ray that was unremarkable, serial blood test negative for evidence for heart attack. Lipase and liver functions unremarkable. IV Protonix antacid given, symptoms further improved. We discussed CT angiogram looking for aortic problems, this is not seem unlikely diagnosis at this time, hold for now. Consider trial of antacid therapy such as omeprazole [id number]. Avoid exacerbates known to bother the esophagus, such as ibuprofen naproxen alcohol carbonated beverages caffeine products. Consider further workup as an outpatient for now, follow up with your regular provider to coordinate Cardiology and/or Gastroenterology and/or other follow up as needed.. Return to this/nearest emergency department for any change or worsening symptoms or any concerns prior Prescriptions: No Action acetaminophen 325 mg Tablet 650 mg PO Q6HR PRN (Reason: Pain, Mild (1-3)) 14 Days Qty: 60 1RF ibuprofen 600 mg Tablet 600 mg PO Q6HR PRN (Reason: Pain, Mild (1-3)) 14 Days Qty: 60 1RF Referrals: Maribell German CNM [Primary Care Provider] - Stand Alone Forms: Patient Portal/API
[2024-05-04 22:26] LABS: Alanine Aminotransferase 14 IU/L (<35); Albumin 4.8 g/dL (3.5-5.0); Albumin Globulin Ratio 1.7 (1.0-2.8); Alkaline Phosphatase 64 U/L (38-126); Aspartate Aminotransferase 23 IU/L (14-36); BUN Creatinine Ratio 15.4 (6-22); Bilirubin Total 0.4 mg/dL (0.2-1.3); Blood Urea Nitrogen 12 mg/dL (7-17); Calcium 9.8 mg/dL (8.4-10.2); Carbon Dioxide 24 mmol/L (22-32); Chloride 109 mmol/L (98-107); Creatine Kinase 124 U/L (30-135); Estimated Glomerular Filt Rate > 60 mL/min (>60); Globulin 2.9 g/dL (1.7-4.1); Glucose 103 mg/dL (70-100); HEMOLYSIS < 15 (0-50); Lipase 58 U/L (23-300); Sodium 141 mmol/L (137-145); Total Protein 7.7 g/dL (6.3-8.2)
[2024-05-04 22:37] LABS: Troponin I < 0.012 ng/mL (0.01-0.034)
[2024-05-04] MEDS: PANTOPRAZOLE 40 MG VIAL IV (22:47)
[2024-05-05] VITALS: BP 100/59; PULSE 69; RESP 19; O2SAT 98
[2024-05-05 00:30] VITALS: BP 98/60; PULSE 56; RESP 14; TEMP 36.6; O2SAT 95
[2024-05-05 00:32] LABS: Troponin I < 0.012 ng/mL (0.01-0.034)
== END 2024-05-05 00:57 | disposition home or self-care (01) ==
PROVIDERS: Emergency Provider Emergency Medicine; PCP Nurse Practitioner Obstetrics & Gynecology
DX: R07.9 Chest pain, unspecified (principal)
CPT/HCPCS: 36415; 71045; 80053; 82550; 83690; 84484; 85025; 93005; 96361; 96374; 99284; J2470